=== PATIENT | male | born 1945 | race Caucasian/White ===

== ENCOUNTER 2021-02-28 09:31 | Outpatient (RCR) | payer MEDICARE ==
[2021-02-28] MEDS ORDERED: TETRACAINE 0.5% OU SCH (09:45)
[2021-02-28] MEDS ORDERED: ARTIFICIAL TEARS OU SCH (09:45)
== END 2021-05-29 | disposition home or self-care (01) ==
LOC: ONC 09:31
PROVIDERS: ATTEND Radiology Radiation Oncology
DX: C44.329 Squamous cell carcinoma of skin of other parts of face (principal); K08.109 Complete loss of teeth, unspecified cause, unspecified class; I25.10 Atherosclerotic heart disease of native coronary artery without angina pectoris; E11.9 Type 2 diabetes mellitus without complications; I10 Essential (primary) hypertension; E78.00 Pure hypercholesterolemia, unspecified; Z85.038 Personal history of other malignant neoplasm of large intestine; Z87.891 Personal history of nicotine dependence; Z94.1 Heart transplant status
CPT/HCPCS: 99204

== ENCOUNTER 2021-08-23 13:38 | Outpatient (RCR) | payer MEDICARE | END 2021-08-24 | disposition home or self-care (01) | LOC: ONC 13:38 | PROVIDERS: ATTEND Radiology Radiation Oncology | DX: Z51.0 Encounter for antineoplastic radiation therapy (principal); C44.329 Squamous cell carcinoma of skin of other parts of face; I25.10 Atherosclerotic heart disease of native coronary artery without angina pectoris; E11.9 Type 2 diabetes mellitus without complications; I10 Essential (primary) hypertension; E78.00 Pure hypercholesterolemia, unspecified; Z85.038 Personal history of other malignant neoplasm of large intestine; Z87.891 Personal history of nicotine dependence; Z94.1 Heart transplant status | CPT/HCPCS: 77300; 77301; 77334; 77336; 77338; 77386; 99213 ==

== ENCOUNTER → 2021-09-06 | Outpatient (CLI) | payer MEDICARE | LOC: LABNPT 06:09 | PROVIDERS: ATTEND Radiology Radiation Oncology | DX: C44.90 Unspecified malignant neoplasm of skin, unspecified (principal); Z20.822 Contact with and (suspected) exposure to COVID-19 | CPT/HCPCS: 87635 ==

== ENCOUNTER 2021-09-21 13:07 | Outpatient (RCR) | payer MEDICARE | END 2021-09-24 | disposition home or self-care (01) | LOC: ONC 13:07 | PROVIDERS: ATTEND Radiology Radiation Oncology | DX: Z51.0 Encounter for antineoplastic radiation therapy (principal); C44.329 Squamous cell carcinoma of skin of other parts of face; I25.10 Atherosclerotic heart disease of native coronary artery without angina pectoris; E11.9 Type 2 diabetes mellitus without complications; I10 Essential (primary) hypertension; E78.00 Pure hypercholesterolemia, unspecified; Z85.038 Personal history of other malignant neoplasm of large intestine; Z87.891 Personal history of nicotine dependence; Z94.1 Heart transplant status | CPT/HCPCS: 77290; 77300; 77334; 77336; 77386 ==

== ENCOUNTER 2021-09-27 01:45 | Outpatient (RCR) | payer MEDICARE | END 2021-10-22 | LOC: ONC 01:45 | PROVIDERS: ATTEND Radiology Radiation Oncology | DX: Z51.0 Encounter for antineoplastic radiation therapy (principal); C44.329 Squamous cell carcinoma of skin of other parts of face; I25.10 Atherosclerotic heart disease of native coronary artery without angina pectoris; E11.9 Type 2 diabetes mellitus without complications; I10 Essential (primary) hypertension; E78.00 Pure hypercholesterolemia, unspecified; Z85.038 Personal history of other malignant neoplasm of large intestine; Z87.891 Personal history of nicotine dependence; Z94.1 Heart transplant status | CPT/HCPCS: 77336 ==

== ENCOUNTER 2021-11-01 09:39 | Outpatient (RCR) | payer MEDICARE | END 2021-11-22 | disposition home or self-care (01) | LOC: ONC 09:39 | PROVIDERS: ATTEND Radiology Radiation Oncology | DX: C44.329 Squamous cell carcinoma of skin of other parts of face (principal); I25.10 Atherosclerotic heart disease of native coronary artery without angina pectoris; E11.9 Type 2 diabetes mellitus without complications; I10 Essential (primary) hypertension; E78.00 Pure hypercholesterolemia, unspecified; Z85.038 Personal history of other malignant neoplasm of large intestine; Z87.891 Personal history of nicotine dependence; Z94.1 Heart transplant status | CPT/HCPCS: 99213 ==

== ENCOUNTER 2022-03-28 11:01 | Outpatient (RCR) | payer MEDICARE | END 2022-04-24 | disposition home or self-care (01) | LOC: ONC 11:01 | PROVIDERS: ATTEND Radiology Radiation Oncology | DX: C44.329 Squamous cell carcinoma of skin of other parts of face (principal); I25.10 Atherosclerotic heart disease of native coronary artery without angina pectoris; E11.9 Type 2 diabetes mellitus without complications; I10 Essential (primary) hypertension; E78.00 Pure hypercholesterolemia, unspecified; Z85.038 Personal history of other malignant neoplasm of large intestine; Z87.891 Personal history of nicotine dependence; Z94.1 Heart transplant status | CPT/HCPCS: 99213 ==